=== PATIENT | female | born 1990 | race Caucasian/White ===

== ENCOUNTER 2018-05-29 16:04 | Emergency (ER) | payer MEDICAID, OTHER ==
[2018-05-29 16:16] VITALS: O2SAT 100
[2018-05-29 17:19] LABS: BASO # 0.1 K/uL (0.0-0.2); BASO % 0.6 % (0.0-2.0); EOS # 0.1 K/uL (0.0-0.7); EOS % 0.6 % (0.0-4.0); HEMOGLOBIN 13.1 g/dL (11.0-16.0); LYMPH # 2.6 K/uL (1.0-4.3); LYMPH % 30.1 % (20.0-40.0); MEAN CELL VOLUME 92.5 fL (81.0-99.0); MEAN CORPUSCULAR HEMOGLOBIN 31.8 pg (27.0-31.0); MEAN CORPUSCULAR HGB CONC 34.3 g/dL (33.0-37.0); MEAN PLATELET VOLUME 8.4 fL (7.2-11.7); MONO # 0.4 K/uL (0.0-0.8); MONO % 4.4 % (0.0-10.0); NEUT # 5.6 K/uL (1.8-7.0); NEUT % 64.3 % (50.0-75.0); RBC 4.14 Mil/uL (3.80-5.20); WHITE BLOOD COUNT 8.8 K/uL (4.8-10.8)
[2018-05-29 17:23] LABS: SQUAMOUS EPITHIAL 10 /hpf (0-5); URINE BACTERIA FEW (<OCC); URINE BILIRUBIN NEGATIVE (NEGATIVE); URINE BLOOD NEGATIVE (NEGATIVE); URINE CLARITY Hazy (Clear); URINE COLOR Yellow (YELLOW); URINE GLUCOSE (UA) NORMAL (Normal); URINE LEUKOCYTE ESTERASE 3+ Leu/uL (Negative); URINE PROTEIN NEGATIVE (NEGATIVE); URINE UROBILINOGEN NORMAL mg/dL (0.2-1.0)
[2018-05-29 17:34] LABS: BLOOD UREA NITROGEN 6 mg/dL (7-17); CALCIUM 9.3 mg/dl (8.6-10.4); GFR NON-AFRICAN AMERICAN > 60
[2018-05-29 17:37] LABS: ALB/GLOB RATIO 1.3 (1.0-2.1); ALBUMIN 4.7 g/dL (3.5-5.0); ALT/SGPT 9 U/L (9-52); AST/SGOT 41 U/L (14-36)
--- NOTE | 2018-05-29 17:39 | C.PDOC ---
History Of Present Illness 27 year old female, currently , presents to the ED for complaints of lower abdominal pain that started today. Contrary to triage, patient reports pain to the bilateral lower quadrants, and notes pain is shooting from one side to the other and back. Pain is described as sharp. States this morning she lifted her baby, and pain developed immediately after. Of note, gestational age is approximately 14 weeks. Patient reports her last ultrasound was around 1 week ago, and was normal. Otherwise she denies vaginal bleeding or discharge. <Rosa Terrell - Last Filed: 05/29/18 18:41> History Per: Patient History/Exam Limitations: no limitations Onset/Duration Of Symptoms: Hrs Current Symptoms Are (Timing): Still Present Location Of Pain/Discomfort: RLQ, LLQ Quality Of Discomfort: Stabbing Exacerbating Factors: None Abnormal Vaginal Bleeding: No <Rosa Terrell - Last Filed: 05/29/18 18:41> <Leroy Puente - Last Filed: 05/29/18 19:33> Time Seen by Provider: 05/29/18 16:25 Chief Complaint (Nursing): Abdominal Pain Past Medical History Reviewed: Historical Data, Nursing Documentation, Vital Signs Vital Signs: Last Vital Signs Temp 98.1 F 05/29/18 16:12 Pulse 79 05/29/18 16:12 Resp 20 05/29/18 16:12 BP 113/73 05/29/18 16:12 Pulse Ox 100 05/29/18 16:12 - Medical History PMH: No Chronic Diseases Surgical History: Appendectomy (at age 17) Family History: States: Unknown Family Hx - Social History Hx Tobacco Use: No Hx Alcohol Use: No Hx Substance Use: No - Immunization History Hx Tetanus Toxoid Vaccination: No Hx Influenza Vaccination: No Hx Pneumococcal Vaccination: No <Rosa Terrell - Last Filed: 05/29/18 18:41> Vital Signs: Last Vital Signs Temp 99.0 F 05/29/18 18:56 Pulse 84 05/29/18 18:56 Resp 16 05/29/18 18:56 BP 100/64 05/29/18 18:56 Pulse Ox 100 05/29/18 18:56 <Leroy Puente - Last Filed: 05/29/18 19:33> Review Of Systems Except As Marked, All Systems Reviewed And Found Negative. Constitutional: Negative for: Fever Cardiovascular: Negative for: Light Headedness Respiratory: Negative for: Shortness of Breath Gastrointestinal: Positive for: Abdominal Pain. Negative for: Nausea, Vomiting, Diarrhea Genitourinary: Negative for: Dysuria, Frequency, Vaginal Discharge, Vaginal Bleeding Musculoskeletal: Negative for: Back Pain Neurological: Negative for: Weakness, Numbness <Rosa Terrell - Last Filed: 05/29/18 18:41> Physical Exam - Physical Exam Appears: Non-toxic, No Acute Distress Skin: Warm, Dry Head: Atraumatic, Normacephalic Eye(s): bilateral: Normal Inspection, PERRL, EOMI Oral Mucosa: Moist Neck: Normal ROM Chest: Symmetrical Cardiovascular: Rhythm Regular, No Murmur Respiratory: Normal Breath Sounds, No Rales, No Rhonchi, No Wheezing Gastrointestinal/Abdominal: Soft, Tenderness (mild tenderness to RLQ and LLQ), No Guarding, No Rebound Back: Normal Inspection Extremity: Bilateral: Atraumatic, Normal Color And Temperature, Normal ROM Neurological/Psych: Oriented x3, Normal Speech Gait: Steady <Rosa Terrell - Last Filed: 05/29/18 18:41> ED Course And Treatment - Laboratory Results Result Diagrams: 05/29/18 17:16 05/29/18 17:16 Lab Results: Urine Color Yellow (YELLOW) 05/29/18 17:09 Urine Clarity Hazy (Clear) 05/29/18 17:09 Urine pH 5.0 (5.0-8.0) 05/29/18 17:09 Ur Specific [place] 1.017 (1.003-1.030) 05/29/18 17:09 Urine Protein Negative mg/dL (NEGATIVE) 05/29/18 17:09 Urine Glucose (UA) Normal mg/dL (Normal) 05/29/18 17:09 Urine Ketones Negative mg/dL (NEGATIVE) 05/29/18 17:09 Urine Blood Negative (NEGATIVE) 05/29/18 17:09 Urine Nitrate Negative (NEGATIVE) 05/29/18 17:09 Urine Bilirubin Negative (NEGATIVE) 05/29/18 17:09 Urine Urobilinogen Normal mg/dL (0.2-1.0) 05/29/18 17:09 Ur Leukocyte Esterase 3+ Luann/uL (Negative) H 05/29/18 17:09 Urine WBC (Auto) 21 /hpf (0-5) H 05/29/18 17:09 Urine RBC (Auto) 3 /hpf (0-3) 05/29/18 17:09 Ur Squamous Epith Cells 10 /hpf (0-5) H 05/29/18 17:09 Urine Bacteria Few (<OCC) H 05/29/18 17:09 O2 Sat by Pulse Oximetry: 100 (RA) Pulse Ox Interpretation: Normal Progress Note: Blood work and urine sent to the lab. Pelvic/transvag US ordered. Labs reviewed, UA shows +leuks, WBC, and few bacteria. Beta-HC. Pending radiology official read of ultrasound. <Rosa Terrell - Last Filed: 05/29/18 18:41> - Laboratory Results Result Diagrams: 05/29/18 17:16 05/29/18 17:16 Lab Results: Total Bilirubin 0.9 mg/dL (0.2-1.3) 05/29/18 17:16 AST 41 U/L (14-36) H 05/29/18 17:16 ALT 9 U/L (9-52) D 05/29/18 17:16 Alkaline Phosphatase 52 U/L (38-126) 05/29/18 17:16 Total Protein 8.2 g/dL (6.3-8.3) 05/29/18 17:16 Albumin 4.7 g/dL (3.5-5.0) 05/29/18 17:16 Globulin 3.5 gm/dL (2.2-3.9) 05/29/18 17:16 Albumin/Globulin Ratio 1.3 (1.0-2.1) 05/29/18 17:16 Urine Color Yellow (YELLOW) 05/29/18 17:09 Urine Clarity Hazy (Clear) 05/29/18 17:09 Urine pH 5.0 (5.0-8.0) 05/29/18 17:09 Ur Specific [place] 1.017 (1.003-1.030) 05/29/18 17:09 Urine Protein Negative mg/dL (NEGATIVE) 05/29/18 17:09 Urine Glucose (UA) Normal mg/dL (Normal) 05/29/18 17:09 Urine Ketones Negative mg/dL (NEGATIVE) 05/29/18 17:09 Urine Blood Negative (NEGATIVE) 05/29/18 17:09 Urine Nitrate Negative (NEGATIVE) 05/29/18 17:09 Urine Bilirubin Negative (NEGATIVE) 05/29/18 17:09 Urine Urobilinogen Normal mg/dL (0.2-1.0) 05/29/18 17:09 Ur Leukocyte Esterase 3+ Luann/uL (Negative) H 05/29/18 17:09 Urine WBC (Auto) 21 /hpf (0-5) H 05/29/18 17:09 Urine RBC (Auto) 3 /hpf (0-3) 05/29/18 17:09 Ur Squamous Epith Cells 10 /hpf (0-5) H 05/29/18 17:09 Urine Bacteria Few (<OCC) H 05/29/18 17:09 Beta HCG, Quant 05582.00 mIU/ML 05/29/18 17:16 <Leroy Puente - Last Filed: 05/29/18 19:33> Disposition - Disposition Disposition Time: 18:42 <Rosa Terrell - Last Filed: 05/29/18 18:41> Counseled Patient/Family Regarding: Diagnosis - Disposition Disposition Time: 19:30 - POA Present On Arrival: None <Leroy Puente - Last Filed: 05/29/18 19:33> - Disposition Referrals: [facility] [Outside] Disposition: HOME/ ROUTINE Condition: STABLE Prescriptions: Nitrofurantoin Macrocrystals [Macrobid] 1 cap PO BID #14 cap Instructions: Urinary Tract Infection, Adult (DC) Forms: Invenergy (Welsh) - Clinical Impression Clinical Impression: Pelvic pain affecting , UTI (urinary tract infection) during - PA / GLASS EDGER / Resident Statement MD/DO has reviewed & agrees with the documentation as recorded. - Scribe Statement The provider has reviewed the documentation as recorded by the Scribe Vicky Wade All medical record entries made by the Scribe were at my direction and personally dictated by me. I have reviewed the chart and agree that the record accurately reflects my personal performance of the history, physical exam, medical decision making, and the department course for this patient. I have also personally directed, reviewed, and agree with the discharge instructions and disposition. <Rosa Terrell - Last Filed: 05/29/18 18:41> Physician Patient Turnover Patient Signed Over To: Leroy Puente Handoff Comments: Pending pelvic US and dispo <Rosa Terrell - Last Filed: 05/29/18 18:41>
--- NOTE | 2018-05-29 18:59 | US ---
Date of service: 05/29/2018 Indication: 14 wks with pelvic pain, denies bleeding Comparison: None available Technique: Transabdominal pelvic ultrasound Findings: The uterus measures approximately 14.9 x 4.1 x 11.6 cm. Anteverted. Cervix length measures approximately 3.7 cm. There is a single intrauterine fetus present. Yolk sac is not identified. The gestational sac measures 7.3 cm, out of range for gestational age calculation. The crown-rump length measures 7 cm and is compatible with a gestational age of 13 weeks 1 day. There is heart motion which measured 152 BPM. The right ovary measures 3.2 x 2.4 x 2.9 cm. The left ovary measures 3.6 x 3.0 x 3.2 cm and contains 1.8 x 1.7 x 1.5 cm corpus luteal cyst. Flow was demonstrated to both ovaries. Impression: Live single intrauterine with estimated gestational age 13 weeks 1 day. heart rate 152 bpm. Advise an anomaly screen at 16-18 weeks gestational age 1.8 x 1.7 x 1.5 cm probable left corpus luteal cyst.
[2018-05-29 19:47] VITALS: BP 103/66; PULSE 81; RESP 14; TEMP 98.2
== END 2018-05-29 19:56 | disposition home or self-care (01) ==
LOC: C.ER 16:04
DX: O23.42 Unspecified infection of urinary tract in pregnancy, second trimester (principal); R10.2 Pelvic and perineal pain; Z3A.14 14 weeks gestation of pregnancy